=== PATIENT | male | born 1965 ===

== ENCOUNTER 2017-03-10 12:25 | Emergency (ER) | payer MEDICAID ==
[2017-03-10 13:03] VITALS: O2SAT 98
--- NOTE | 2017-03-10 13:39 | C.PDOC ---
History Of Present Illness 51 y/o male presents to the ER complaining of pain in the medial left wrist which has been present for the past 2 months. Patient states that the pain started after he swung a baseball bat with excessive medial distraction of the left wrist. Patient states that he feels like he has pins and needles in his left hand and the pain is waxing and waning. 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 Time Seen by Provider: 03/10/17 13:09 Chief Complaint (Nursing): Upper Extremity Problem/Injury History Per: Patient History/Exam Limitations: no limitations Onset/Duration Of Symptoms: Days Current Symptoms Are (Timing): Still Present Severity: Moderate Past Medical History Reviewed: Historical Data, Nursing Documentation, Vital Signs Vital Signs: Last Vital Signs Temp 98.0 F 03/10/17 14:13 Pulse 72 03/10/17 14:13 Resp 16 03/10/17 14:13 BP 159/74 H 03/10/17 14:13 Pulse Ox 98 03/10/17 16:15 - Medical History PMH: HTN, Hypercholesterolemia Surgical History: No Surg Hx Family History: States: No Known Family Hx - Social History Hx Alcohol Use: No Hx Substance Use: No - Immunization History Hx Tetanus Toxoid Vaccination: No Hx Influenza Vaccination: No Hx Pneumococcal Vaccination: No Review Of Systems Except As Marked, All Systems Reviewed And Found Negative. Musculoskeletal: Positive for: Other (left wrist pain) Neurological: Negative for: Weakness, Numbness Physical Exam - Physical Exam Appears: Non-toxic, No Acute Distress Skin: Normal Color, Warm Head: Atraumatic, Normacephalic Eye(s): bilateral: Normal Inspection, PERRL Ear(s): Bilateral: Normal Nose: Normal Oral Mucosa: Moist Neck: Supple Chest: Symmetrical Cardiovascular: Rhythm Regular Respiratory: Normal Breath Sounds, No Accessory Muscle Use, No Rales, No Rhonchi , No Wheezing Extremity: Normal ROM, Tenderness (mild tenderness at the medial aspect of left hand), No Swelling, Other (normal left hand, normal left wrist) Neurological/Psych: Oriented x3, Normal Speech, Normal Cognition, Normal Motor, Normal Sensation ED Course And Treatment O2 Sat by Pulse Oximetry: 98 (RA) Pulse Ox Interpretation: Normal - Other Rad L wrist X-Ray: Interpreted by Me (neg), Read By Radiologist Progress Note: ice pack, motrin, L wrist velcro splint Medical Decision Making Medical Decision Making: L wrist extreme medial distraction 1 month ago (R handed baseball batter) with mild CArpal tunnel syndrome symptoms worse with persistent weight lifting. Splint, ice, nsaids reviewed and opt f/u PRN with Clinic/Hand- Dr. Lemus Rn Psych Disposition Doctor Will See Patient In The: Office Counseled Patient/Family Regarding: Studies Performed, Diagnosis - Disposition Referrals: [facility] [Outside] Luda Lemus MD [Staff Provider] - Disposition: HOME/ ROUTINE Disposition Time: 14:01 Condition: GOOD Additional Instructions: bolsa de hielo 1/2 hora por hora, nada caliente Ibuprofeno 400-600 mg cada 6 horas cecelia necessario Mantiene el esguinse del sivan izquierda todo el tiempo, aparte de banar. No levanta nada pesada por 2 semanas Sigue en la [facility] - gratis- para considerar MRI del sivan cecelia necessario Sigue con Dr. Lemus- Orthopedico especialist de las asmita- cecelia necessario. Instructions: Carpal Tunnel Syndrome (ED), Wrist Sprain (ED) Forms: [employer] (Korean) Print Language: FRENCH - Clinical Impression Clinical Impression: Left wrist sprain, Carpal tunnel syndrome - Scribe Statement The provider has reviewed the documentation as recorded by the Scribe Jose Sheikh Provider Attestation: All medical record entries made by the Scribe were at my direction and personally dictated by me. I have reviewed the chart and agree that the record accurately reflects my personal performance of the history, physical exam, medical decision making, and the department course for this patient. I have also personally directed, reviewed, and agree with the discharge instructions and disposition.
--- NOTE | 2017-03-10 13:51 | RAD ---
PROCEDURE: Left Wrist Radiographs. HISTORY: medial distraction 1 month ago, distal parasthesia COMPARISON: None. FINDINGS: BONES: No acute fracture. Accessory ossicles adjacent to the ulnar styloid. JOINTS: Unremarkable. SOFT TISSUES: Normal. OTHER FINDINGS: None. IMPRESSION: No demonstrated fracture or dislocation. Accessory ossicles adjacent to the ulnar styloid.
[2017-03-10 14:14] VITALS: BP 159/74; PULSE 72; RESP 16; TEMP 98
== END 2017-03-10 14:13 | disposition home or self-care (01) ==
LOC: C.ER 12:25
DX: S63.502A Unspecified sprain of left wrist, initial encounter (principal); X58.XXXA Exposure to other specified factors, initial encounter; G56.02 Carpal tunnel syndrome, left upper limb; E78.00 Pure hypercholesterolemia, unspecified; I10 Essential (primary) hypertension